=== PATIENT | male | born 1945 | race African-American/Black ===

== ENCOUNTER 2022-06-21 10:27 | Emergency (ER) | payer MEDICARE ==
[~2022-06-21] VITALS: Ht 170.2 cm; Wt 77.0 kg
[2022-06-21 10:35] VITALS: BP 140/82
[2022-06-21] MEDS ORDERED: HYDROCODONE/ACETAMINOPHEN 5/325MG TABLET PO ONE (10:45)
[2022-06-21] MEDS ORDERED: TETANUS, DIPHTHERIA, PERTUSSIS VAC/PF 0.5ML (>10YR OLD) IM ONE (10:45)
[2022-06-21] MEDS ORDERED: IBUP-2029 MT (12:59)
[2022-06-21] MEDS ORDERED: AMOX1TAB16 MT (12:59)
[2022-06-21] MEDS ORDERED: T3 PO (12:59)
== END 2022-06-21 13:55 | disposition home or self-care (01) ==
LOC: ER 10:27
DX: S51.851A Open bite of right forearm, initial encounter (principal); S71.152A Open bite, left thigh, initial encounter; E11.9 Type 2 diabetes mellitus without complications; I25.10 Atherosclerotic heart disease of native coronary artery without angina pectoris; I11.0 Hypertensive heart disease with heart failure; I50.9 Heart failure, unspecified; Z98.61 Coronary angioplasty status; W54.0XXA Bitten by dog, initial encounter; Y93.89 Activity, other specified; Y92.488 Other paved roadways as the place of occurrence of the external cause
CPT/HCPCS: 73090; 73552; 90471; 90715; 99283